=== PATIENT | female | born 1965 | race Caucasian/White ===

== ENCOUNTER 2017-10-07 12:40 | Emergency (ER) | payer OTHER ==
[~2017-10-07] VITALS: Ht 157.5 cm; Wt 90.7 kg
--- OUTSIDE RECORDS SUMMARY | 2017-10-07 12:42 | XMS REPORT ---
Author Author [facility] Address Unknown Phone Unavailable Care Team Providers Care Cotton Ginner Name Role Phone Unavailable Unavailable Problems This patient has no known problems. Allergies, Adverse Reactions, Alerts This patient has no known allergies or adverse reactions. Medications This patient has no known medications. Encounters Start Date/Time End Date/Time Encounter Type Admission Type Attending [facility] Facility Care Department Encounter ID 2017-10-18 00:00:00 2017-10-18 00:00:00 Outpatient [facility] [id number] 2017-10-11 00:00:00 2017-10-11 00:00:00 Outpatient [facility] [id number] 2017-10-05 07:37:22 2017-10-05 07:37:22 Outpatient [facility] [id number] 2017-09-27 09:33:03 2017-09-27 09:33:03 Outpatient [facility] [id number] 2017-09-26 00:00:00 2017-09-26 00:00:00 Outpatient [facility] [id number] 2017-09-20 00:00:00 2017-09-20 00:00:00 Outpatient [facility] [id number] 2017-09-12 00:00:00 2017-09-12 00:00:00 Outpatient [facility] [id number] 2017-09-06 12:52:56 2017-09-06 12:52:56 Outpatient [facility] [id number] 2017-08-03 00:00:00 2017-08-03 00:00:00 Outpatient [facility] [id number] 2017-06-21 10:35:21 2017-06-21 10:35:21 Outpatient [facility] [id number] 2017-06-21 00:00:00 2017-06-21 00:00:00 Outpatient [facility] [id number] 2017-06-17 13:54:14 2017-06-17 13:54:14 Outpatient [facility] [id number] 2017-05-26 00:00:00 2017-05-26 00:00:00 Outpatient [facility] [id number] 2017-05-18 00:00:00 2017-05-18 00:00:00 Outpatient [facility] [id number] 2017-04-26 11:13:57 2017-04-26 11:13:57 Outpatient [facility] [id number] 2017-03-30 10:06:24 2017-03-30 10:06:24 Outpatient [facility] [id number]
[2017-10-07] MEDS ORDERED: CYCLOBENZAPRINE HCL 10 MG TAB PO ONE (13:00)
[2017-10-07] MEDS ORDERED: HYDROCODONE/APAP 7.5MG-325MG 1 EA TAB PO PRN (13:00)
[2017-10-07] MEDS ORDERED: FLUOXETINE HCL20 MG PO (13:40)
[2017-10-07] MEDS ORDERED: BENZONATATE100 MG PO (13:40)
[2017-10-07] MEDS ORDERED: VITAMIN D250000 UNIT PO (13:40)
[2017-10-07] MEDS ORDERED: ACIDOPHILUS LA1 EACH PO (13:40)
[2017-10-07] MEDS ORDERED: ULTRAM 50MG50 MG PO (13:40)
[2017-10-07] MEDS ORDERED: CARISOPRODOL350 MG PO (13:40)
[2017-10-07] MEDS ORDERED: CYMBALTA60 MG PO (13:40)
[2017-10-07] MEDS ORDERED: OXYBUTYNIN CHLOR5 MG PO (13:40)
[2017-10-07] MEDS ORDERED: PROVENTIL HFA6.7 GM INH (13:40)
[2017-10-07] MEDS ORDERED: HYDROXYZINE HCL25 MG PO (13:40)
[2017-10-07] MEDS ORDERED: ESIDRIX25 MG PO (13:40)
[2017-10-07] MEDS ORDERED: GABAPENTIN100 MG PO (13:40)
[2017-10-07] MEDS ORDERED: LISINOPRIL40 MG PO (13:40)
[2017-10-07] MEDS ORDERED: NIFEDIPINE ER90 MG PO (13:40)
[2017-10-07] MEDS ORDERED: ZOLPIDEM TARTRA10 MG PO (13:40)
[2017-10-07] MEDS ORDERED: KETOROLAC TROMETHAMINE 60 MG/2 ML VIAL IM ONE (14:45)
[2017-10-07] MEDS ORDERED: DIAZEPAM 5 MG TAB PO SCH (15:00)
[2017-10-07] MEDS ORDERED: DIAZEPAM 2 MG TAB PO ONE (15:00)
--- NOTE | 2017-10-07 20:41 | Diagnostic Imaging Report ---
History: neck pain Comparison studies: None Technique: Axial images were obtained through the cervical region. Coronal and sagittal images reconstructed from the axial data. Intravenous contrast: None Findings: Airway: Patent. Atlantoaxial articulation: Intact Alignment: Straightening and mild reversal of cervical lordosis Cervicomedullary junction: No abnormalities. Patent foramen magnum. Soft tissues: No gross abnormalities. Vertebrae: No fractures, neoplasm or infection. 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 Degenerative changes: C2-C3: Moderate right facet arthrosis without significant foraminal stenosis. C3-C4: Mild right foraminal stenosis due to facet and uncovertebral arthrosis. C4-C5: Mild degenerative disc disease. Posterior disc osteophyte complex asymmetric to right results in mild canal stenosis. No significant foraminal stenosis. C5-C6: Mild degenerative disc disease. Posterior disc osteophyte complex and ossification of posterior longitudinal ligament without significant canal stenosis. Mild right foraminal stenosis due to facet and uncovertebral arthrosis. C6-C7: Posterior disc osteophyte complex and ossification of posterior longitudinal ligament results in mild canal stenosis. No significant foraminal stenosis. IMPRESSION: 1. No acute fracture or dislocation. 2. Ossification the posterior longitudinal ligament at C5 and C6. 3. Cervical spondylosis as detailed above. 4. Ligament, spinal cord and or vascular abnormalities cannot be excluded on the basis of this examination. A preliminary report was given by Neuroradiology fellow at 4:49 PM on 10/07/2017. I have reviewed the images and agree with the findings in the preliminary report. Signed by: Dr. Shaneka Lam M.D. on 10/07/2017 8:38 PM
== END 2017-10-07 18:11 | disposition home or self-care (01) ==
LOC: ER 12:40
DX: M54.2 Cervicalgia (principal); S16.1XXA Strain of muscle, fascia and tendon at neck level, initial encounter; S46.811A Strain of other muscles, fascia and tendons at shoulder and upper arm level, right arm, initial encounter
CPT/HCPCS: 71046; 72125; 93005; 99284; J1885

== ENCOUNTER 2017-10-23 12:43 | Emergency (ER) | payer OTHER ==
[~2017-10-23] VITALS: Ht 157.5 cm; Wt 90.7 kg
[~2017-10-23 12:43] MED LIST: ACIDOPHILUS LA1 EACH PO; BENZONATATE100 MG PO; CARISOPRODOL350 MG PO; CYMBALTA60 MG PO; ESIDRIX25 MG PO; FLUOXETINE HCL20 MG PO; GABAPENTIN100 MG PO; HYDROXYZINE HCL25 MG PO; LISINOPRIL40 MG PO; NIFEDIPINE ER90 MG PO; OXYBUTYNIN CHLOR5 MG PO; PROVENTIL HFA6.7 GM INH; ULTRAM 50MG50 MG PO; VITAMIN D250000 UNIT PO; ZOLPIDEM TARTRA10 MG PO
--- OUTSIDE RECORDS SUMMARY | 2017-10-23 12:46 | XMS REPORT | Continuity of Care Document ---
Author Author [facility] Organization [facility] Address [address] [place] [address] Phone Unavailable Care Team Providers Care Costume Maker Name Role Phone NONSTAFF PCP Unavailable Insurance Providers Guarantor Sana Mac Address [address] [place] [address] Email PTDECLINED Payer [place] Medicaid Policy Number [id number] Subscriber's Name Sana Mac Jolanta Relationship 18 Self / Same As Patient Effective Date 11 Advance Directives Directive Response Recorded Date/Time Does the patient have an advance directive? No 10/07/17 2:39pm If yes, is advance directive on file with [facility]? No 10/07/17 2:39pm If not on file with [facility] will patient provide a copy? No 10/07/17 2:39pm Do you have a Directive to Physician? No 10/07/17 2:39pm Do you have a Medical Power of Insurance Claim Auditor? No 10/07/17 2:39pm Do you have an out of hospital Do Not Resuscitate Order? No 10/07/17 2:39pm Do you have any special needs we should be aware of? No 10/07/17 2:39pm Do you have a support person here with you today? Yes 10/07/17 2:39pm Did patient receive Notice of Privacy Practices? Yes 10/07/17 2:39pm Did patient receive patient rights and responsibilities? Yes 10/07/17 2:39pm Problems No problem information available. Medications Current Home Medications Medication Dose Units Route Directions Days Qty Instructions Start Date Albuterol Sulfate (Proventil Hfa) 6.7 Gm Hfa.aer.ad 2 Inh Inhalation Daily 13 Benzonatate 100 Mg Capsule 100 Mg Oral Three Times A Day as needed for Cough 90 Carisoprodol 350 Mg Tablet 350 Mg Oral Three Times A Day as needed for Cramps 90 Duloxetine Hcl (Cymbalta) 60 Mg Capsule.dr 60 Mg Oral Twice A Day 60 Ergocalciferol (Vitamin D2) (Vitamin D2) 50,000 Unit Capsule 1 Cap Oral Daily 4 Fluoxetine Hcl 20 Mg Capsule 20 Mg Oral Daily 30 Gabapentin 100 Mg Capsule 100 Mg Oral Twice A Day 60 Hydrochlorothiazide (Esidrix*) 25 Mg Tab 25 Mg Oral Daily 30 Hydroxyzine Hcl 25 Mg Tablet 25 Mg Oral Three Times A Day 90 Lactobacillus Acidophilus (Acidophilus Lactobacillus) 1 Each Capsule 1 Tab Oral Twice A Day 100 Lisinopril 40 Mg Tablet 40 Mg Oral Daily 30 Nifedipine (Nifedipine Er) 90 Mg Tablet.er 90 Mg Oral Daily 30 Oxybutynin Chloride 5 Mg Tablet 5 Mg Oral Daily 45 Tramadol Hcl (Ultram 50MG*) 50 Mg Tab 5 Mg Oral Three Times A Day as needed for Pain 90 Zolpidem Tartrate 10 Mg Tablet 10 Mg Oral Bedtime as needed for Insomnia 30 Social History Smoking Status Start Date Stop Date Current every day smoker Hospital Discharge Instructions No hospital discharge instruction information available. Plan of Care Discharge Date 10/07/17 6:11pm Disposition HOME, SELF-CARE Condition at Discharge Stable Instructions/Education Provided Strains Forms Provided Work/School Excuse Prescriptions See Medication Section Referrals Chintan Alejo Additional Instructions/Education follow up with pcp take meds as directed Functional Status No functional status information available. Allergies, Adverse Reactions, Alerts Allergen Type Severity Reaction Status Last Updated Codeine Allergy Intermediate Active 10/07/17 Immunizations No immunization information available. Vital Signs Acute Vital Signs Vital Response Date/Time Height 5 ft 2 in 10/07/2017 12:42pm Weight 200 lb 10/07/2017 12:42pm Body Mass Index 36.6 kg/m^2 10/07/2017 12:42pm Results No relevant diagnostic test, laboratory data and/or discharge summary information available. Procedures Procedure Status Date Provider(s) X-ray of chest, two views Active 10/07/17 MATI ALVAREZ NP Computed tomography of cervical spine without contrast Active 10/07/17 MATI ALVAREZ NP Encounters Encounter Location Arrival/Admit Date Discharge/Depart Date Attending Provider Departed Emergency Room [facility] 10/07/17 12:40pm 10/07 6:11pm SUSANNA MCALLISTER
[2017-10-23] MEDS ORDERED: KETOROLAC TROMETHAMINE 60 MG/2 ML VIAL IM ONE (13:00)
[2017-10-23] MEDS ORDERED: CYCLOBENZAPRINE HCL 10 MG TAB PO ONE (13:00)
--- NOTE | 2017-10-23 13:39 | Diagnostic Imaging Report ---
RIGHT SHOULDER X-RAY - 2 VIEWS HISTORY: \S\pain \[id number] \[id number] COMPARISON: None available. FINDINGS: Bones: No acute displaced fracture. Osseous alignment is within normal limits. Joints: The joint spaces are well-maintained. Soft tissues: The soft tissues appear unremarkable. IMPRESSION: No acute radiographic abnormality. Signed by: Dr. Apurva Lanier M.D. on 10/23/2017 1:35 PM
== END 2017-10-23 14:14 | disposition home or self-care (01) ==
LOC: ER 12:43
DX: S46.811A Strain of other muscles, fascia and tendons at shoulder and upper arm level, right arm, initial encounter (principal); Y93.E2 Activity, laundry; Y92.019 Unspecified place in single-family (private) house as the place of occurrence of the external cause; M75.81 Other shoulder lesions, right shoulder
CPT/HCPCS: 73030; 99283; J1885

== ENCOUNTER 2019-03-27 13:38 | Emergency (ER) | payer OTHER ==
[~2019-03-27] VITALS: Ht 157.5 cm; Wt 90.7 kg
[2019-03-27] MEDS ORDERED: ASPIRIN 81 MG CHEW TAB PO ONE (14:15)
[2019-03-27 14:16] LABS: BASOPHILS % 0.2 % (0.0-1.0); EOSINOPHILS % 0.5 % (0.0-6.0); HEMOGLOBIN 12.8 g/dL (12.0-16.0); LYMPHOCYTES # (AUTO) 1.7 (1.0-3.2); LYMPHOCYTES % 27.1 % (18.0-39.1); MEAN CORPUSCULAR HEMOGLOBIN 30.1 pg (28-32); MEAN CORPUSCULAR HGB CONC 32.8 g/dL (31-35); MEAN CORPUSCULAR VOLUME 91.8 fL (81-99); MONOCYTES # (AUTO) 0.5 (0.2-0.8); MONOCYTES % 8.3 % (4.4-11.3); NEUTROPHILS # (AUTO) 3.9 (2.1-6.9); NEUTROPHILS % 63.6 % (38.7-80.0); PLATELET COUNT 203 x10e3/uL (140-360); RED BLOOD COUNT 4.25 x10e6/uL (3.6-5.1); RED CELL DISTRIBUTION WIDTH 13.9 % (11.7-14.4)
[2019-03-27 14:33] LABS: ALANINE AMINOTRANSFERASE 15 IU/L (0-55); ALBUMIN 3.7 g/dL (3.5-5.0); ALBUMIN/GLOBULIN RATIO 0.7 (0.8-2.0); ALKALINE PHOSPHATASE 105 IU/L (40-150); ANION GAP 13.8 mmol/L (8-16); BLOOD UREA NITROGEN 13 mg/dL (7-26); BUN/CREATININE RATIO 14 (6-25); CARBON DIOXIDE 29 mmol/L (22-29); CHLORIDE 97 mmol/L (98-107); CREATINE KINASE 61 IU/L (29-168); CREATININE, SERUM 0.91 mg/dL (0.57-1.11); EST GLOMERULAR FILTRATION RATE > 60 ML/MIN (60-); GLUCOSE 92 mg/dL (74-118); POTASSIUM 3.8 mmol/L (3.5-5.1); SODIUM 136 mmol/L (136-145)
[2019-03-27 15:06] LABS: BILIRUBIN,URINE NEGATIVE (NEGATIVE); CLARITY,URINE SL CLOUDY (CLEAR); COLOR,URINE YELLOW (YELLOW); KETONES,URINE NEGATIVE (NEGATIVE); LEUKOCYTE ESTERASE ,URINE NEGATIVE (NEGATIVE); NITRITE,URINE NEGATIVE (NEGATIVE); PROTEIN,URINE DIPSTICK NEGATIVE (NEGATIVE); URINE UROBILINOGEN 0.2 mg/dL (0.2 - 1)
[2019-03-27 15:20] LABS: BACTERIA,URINE MODERATE /HPF; EPITHELIAL CELLS,URINE MANY /LPF; RENAL EPITHELIAL CELLS,URINE FEW
--- NOTE | 2019-03-27 15:22 | Diagnostic Imaging Report ---
Chest, 1 view, 03/27/2019. History: Shortness of breath. Comparison: None available. Findings: The cardiomediastinal silhouette and pulmonary vasculature are within normal limits for a portable exam. There is no focal consolidation or pleural effusion. There are no acute osseous or soft tissue abnormalities. Impression: No acute cardiopulmonary abnormality. Signed by: Jon Montgomery on 03/27/2019 3:18 PM
[2019-03-27] MEDS ORDERED: SODIUM CHLORIDE 0.9% 1000ML 1,000 ML IV STA (16:38)
[2019-03-27] MEDS ORDERED: FOLIC ACID 5 MG/ML VIAL IV ONE (16:45)
--- NOTE | 2019-03-27 17:37 | Diagnostic Imaging Report ---
Examination: CT head without contrast Clinical Indication: Right arm numbness. Technique: Transaxial noncontrast images from the skull base through the vertex were obtained. Sagittal and coronal reformatted images were done. Dose modulation, iterative reconstruction, and/or weight based adjustment of the mA/kV was utilized to reduce the radiation dose to as low as reasonably achievable. Comparison: None. Findings: Scalp: No abnormalities. Bones: Intact. No fractures. No blastic or lytic lesions. Brain sulci: Appropriate for patient's age. Ventricles: Normal in size and configuration. No hydrocephalus. Extra-axial space: No abnormalities. Parenchyma: No abnormal densities. No masses, hemorrhage, or acute or chronic cortical based vascular insults. Suprasellar region: No abnormalities. Craniocervical junction: The foramen magnum is patent. No Chiari one malformation. Impression: No intracranial abnormality. Signed by: Dr. Sera Ayon M.D. on 03/27/2019 5:33 PM
--- NOTE | 2019-03-27 17:56 | Diagnostic Imaging Report ---
Examination: MRI BRAIN WO CONTRAST History: Right-sided weakness Comparison studies: Head CT performed earlier today Technique: Sagittal T2; axial DWI, FLAIR, GRE or SWI, T1, Coronal FLAIR. Intravenous contrast: None Findings: Scalp: No abnormal signal. No masses. Bone marrow: Normal in signal intensity. Brain volume: Adequate for age. No volume loss. Ventricles: Normal in size and configuration. No hydrocephalus. Extra-axial spaces: No abnormalities. Parenchyma: No masses, hemorrhage, or acute or chronic vascular insults. Suprasellar and sellar region: No abnormalities. Craniocervical junction: No abnormalities. The foramen magnum is patent. No Chiari malformations. Vessels: Normal flow-voids in the arteries and sinuses. Additional findings:None. IMPRESSION: No acute intracranial abnormality, specifically, no acute infarct. Signed by: Dr. Sera Ayon M.D. on 03/27/2019 5:52 PM
== END 2019-03-27 19:05 | disposition home or self-care (01) ==
LOC: ER 13:38
DX: R20.2 Paresthesia of skin (principal); I10 Essential (primary) hypertension; K21.9 Gastro-esophageal reflux disease without esophagitis; F32.9 Major depressive disorder, single episode, unspecified
CPT/HCPCS: 36415; 70450; 70551; 71045; 80053; 81001; 82550; 82553; 84484; 85025; 93005; 99283